=== PATIENT | male | born 1995 | race Caucasian/White ===

== ENCOUNTER 2019-04-01 00:52 | Emergency (ER) | payer BC ==
[~2019-04-01] VITALS: Ht 175.3 cm; Wt 81.6 kg
[2019-04-01 00:58] VITALS: BP_SYST 139
--- NOTE | 2019-04-01 01:06 | NUR ---
Patient to ER bed 2 to gown for evaluation. Side rails up. Report given to Chuy MAURICIO.
--- NOTE | 2019-04-01 01:06 | NUR ---
PLACED IN BED 2. HERE FOR FLU=LIKE SYMPTOMS X 8 DAYS. (+) FEVER,NIGHT SWEATS,SORE THROAT,RUNNY NOSE,BODYACHES. ALSO COMPLAINS OF RIGHT EARACHE,BLISTERS TO OROPHARYNX AND INNER ASPECT OF THE RIGHT ARM.
--- NOTE | 2019-04-01 01:10 | NUR ---
ER at bedside examining patient.
[2019-04-01] MEDS ORDERED: KETOROLAC TROMETHAMINE 30 MG VIAL IVP ONE (01:30)
[2019-04-01] MEDS ORDERED: NS 1000 ML IV.SOLN IV ONE (01:30)
[2019-04-01] MEDS ORDERED: KETOROLAC TROMETHAMINE 60 MG/2 ML VIAL IM ONE (01:30)
--- NOTE | 2019-04-01 01:51 | NUR ---
GAUGE 18 IV LINE ESTABLISHED TO THE RIGHT ANTECUBITAL AREA. BLOOD DRAWN, URINE AND INFLUENZA SWAB COLLECTED AND SENT TO THE LAB. NS 2 LITER BOLUS AND TORADOL 30 MG IVP GIVEN ORDERED.
--- NOTE | 2019-04-01 01:56 | NUR ---
PORTABLE CXR DONE.
[2019-04-01 02:05] LABS: BASOPHILS % (AUTO) 0.2 % (0.0-2.0); EOSINOPHILS # (AUTO) 0.1 K/uL (0.0-0.4); EOSINOPHILS % (AUTO) 0.7 % (0.0-4.0); HEMATOCRIT 41.3 % (36-54); HEMOGLOBIN 13.9 g/dL (14.0-18.0); LYMPHOCYTES # (AUTO) 1.9 K/uL (1.0-5.5); LYMPHOCYTES % (AUTO) 20.9 % (20.5-51.5); MEAN CORPUSCULAR HEMOGLOBIN 29 pg (27-31); MEAN CORPUSCULAR HGB CONC 34 % (32-36); MEAN CORPUSCULAR VOLUME 86 fL (79.0-98.0); MONOCYTES # (AUTO) 1.2 K/uL (0.0-1.0); MONOCYTES % (AUTO) 13.2 % (1.7-9.3); PLATELET COUNT (AUTO) 369 K/uL (130-430); RED BLOOD CELL COUNT(AUTO) 4.81 MIL/uL (4.2-6.2); RED CELL DISTRIBUTION WIDTH 12.4 % (9.0-15.0); WHITE BLOOD COUNT (AUTO) 9.2 K/uL (4.8-10.8)
--- NOTE | 2019-04-01 02:05 | NUR ---
12 LEAD EKG DONE. REPORT NOTED BY ER-.
[2019-04-01 02:06] LABS: BILIRUBIN,URINE 1+ (NEGATIVE); CLARITY/URINE CLEAR (CLEAR); COLOR,URINE YELLOW (YELLOW); GLUCOSE,URINE NEGATIVE (NEGATIVE); KETONES,URINE 3+ (NEGATIVE); LEUKOCYTE ESTERASE ,URINE NEGATIVE (NEGATIVE); NITRITE, URINE NEGATIVE (NEGATIVE); PH,URINE 6.5 (5.0-8.0); PROTEIN URINE NEGATIVE (NEGATIVE)
[2019-04-01 02:15] LABS: BLOOD, URINE TRACE (NEGATIVE)
[2019-04-01] MEDS ORDERED: OSELTAMIVIR PHOSPHATE 75 MG CAPSULE PO ONE (02:15)
[2019-04-01 02:17] LABS: CALCIUM 9.5 mg/dL (8.4-11.0); CREATININE 0.85 mg/dL (0.55-1.30); POTASSIUM 3.1 mmol/L (3.5-5.1)
[2019-04-01 02:19] LABS: BACTERIA,URINE FEW /HPF (None Seen); WBC,URINE 0-3 /HPF (0-3)
--- NOTE | 2019-04-01 02:20 | NUR ---
Patient given written and verbal discharge instructions and verbalizes understanding. ER MD discussed with patient the results and treatment provided. Patient in stable condition. ID arm band removed. IV catheter removed intact and dressing applied, no active bleeding. Rx of MOTRIN,TAMIFLU given. Patient educated on pain management and to follow up with PMD. Pain Scale 2/10. Opportunity for questions provided and answered. Medication side effect fact sheet provided.
[2019-04-01 02:22] LABS: ALBUMIN 3.8 g/dL (3.4-4.8); TOTAL BILIRUBIN 0.6 mg/dL (0.0-1.0)
--- NOTE | 2019-04-01 02:25 | NUR ---
(+) INLUENZA A. TAMIFLU 75 MG PO GIVEN ORDERED.
--- NOTE | 2019-04-01 02:30 | NUR ---
IVF was started by RN @ 0131 and completed infusion @ 5408
[2019-04-01] MEDS ORDERED: POTASSIUM CHLORIDE 20 MEQ TAB.PRT.SR PO ONE (03:00)
[2019-04-01] MEDS ORDERED: MAGNESIUM OXIDE 400 MG TABLET PO ONE (03:00)
--- NOTE | 2019-04-01 03:09 | NUR ---
KCL 60 MEQPO GIVEN FOR SERUM POTASSIUM LEVEL=3.1. MAGNESIUM OXIDE 400 MG PO ALSO ORDERED BUT NOT AVAILABLE [employer]IA [employer] HOUSEKEEPING AIDE NOTIFIED.
[2019-04-01 03:25] VITALS: BP_SYST 135
[2019-04-01] MEDS ORDERED: MAGNESIUM OXIDE 400 MG TABLET ONE ×2 (03:34→03:35)
== END 2019-04-01 03:52 | disposition home or self-care (01) ==
LOC: SED 00:52
DX: J10.1 Influenza due to other identified influenza virus with other respiratory manifestations (principal); R19.7 Diarrhea, unspecified
CPT/HCPCS: 36415; 71045; 80053; 81000; 85025; 86710; 87040; 87086; 93005; 96361; 96374; 99284; G9035; J1885; J7030